=== PATIENT | female | born 1995 | race Caucasian/White ===

== ENCOUNTER 2025-01-18 13:55 | Outpatient (CLI) | payer BC | END 2025-01-18 13:56 | disposition home or self-care (01) | LOC: CSHLAB 13:55 | PROVIDERS: ATTEND Student in an Organized Health Care Education/Training Program | DX: Z01.818 Encounter for other preprocedural examination (principal); N84.0 Polyp of corpus uteri | CPT/HCPCS: 84703; 85027; 86850; 86900; 86901; 93005; 93010 ==

== ENCOUNTER 2025-01-20 11:11 | Day surgery (SDC) | payer BC ==
[2025-01-18 14:10] VITALS: BMI 53.5
[2025-01-18 15:05] LABS: Hematocrit 39.2 % (34.9-44.5); Hemoglobin 11.9 g/dL (12.0-15.5); Mean Corpuscular Hemoglobin 24.8 pg (27.0-33.0); Mean Corpuscular Volume 81.7 fL (81.6-98.3); Platelet Count 416 10x3/uL (150-450); Red Blood Cell (RBC) Count 4.80 10x6/uL (3.90-5.03); White Blood Cell (WBC) Count 11.01 10x3/uL (3.5-10.5)
[2025-01-18 15:08] LABS: BHCG - Serum Negative (NEGATIVE); Pregs Control Background? CLEAR/WHITE (CLR/WHITE); Pregs Control Bar Appear? YES (CONTROL BAR)
[2025-01-20] MEDS ORDERED: Scopolamine 1 mg/72 hour Patch ONE (12:10)
[2025-01-20] MEDS ORDERED: Famotidine/PF 20 mg/2ml Vial ONE (12:10)
[2025-01-20] MEDS ORDERED: PROPOFOL 20 ML ONE (12:50)
[2025-01-20] MEDS ORDERED: Lidocaine 1% PF 5 ML VIAL ONE (12:51)
[2025-01-20] MEDS ORDERED: Rocuronium Bromide 10 MG/ML (10ML VIAL) ONE (12:51)
[2025-01-20] MEDS ORDERED: Ondansetron PF 4 MG/2 ML Vial ONE (13:45)
[2025-01-20] MEDS ORDERED: SUGAMMADEX SODIUM 200 MG/2 ML VIAL ONE (13:45)
[2025-01-20] MEDS ORDERED: Ketorolac Tromethamine 30 MG (1 mL) VIAL ONE (13:45)
[2025-01-20] MEDS ORDERED: HYDROcodone/Acetaminophen 5/325 mg Tablet ONE (14:35)
== END 2025-01-20 15:45 | disposition home or self-care (01) ==
LOC: CSHSDC 11:11
PROVIDERS: ATTEND Student in an Organized Health Care Education/Training Program
PROC: 0UDB8ZZ Extraction of Endometrium, Via Natural or Artificial Opening Endoscopic (ICD-10-PCS; principal; 2025-01-20)
DX: N71.0 Acute inflammatory disease of uterus (principal); N71.1 Chronic inflammatory disease of uterus; I10 Essential (primary) hypertension; K21.9 Gastro-esophageal reflux disease without esophagitis; G47.33 Obstructive sleep apnea (adult) (pediatric); E66.9 Obesity, unspecified; Z68.43 Body mass index [BMI] 50.0-59.9, adult; Z79.899 Other long term (current) drug therapy
CPT/HCPCS: 36415; 84703; 85027; 86850; 86900; 86901; 88305; J1885; J2250; J2704; J3010